=== PATIENT | male | born 1990 | race Caucasian/White ===

== ENCOUNTER → 2017-11-15 | Emergency (ER) | payer BC, MEDICAID ==
[~2017-11-15] VITALS: Ht 177.8 cm; Wt 76.2 kg
[~2017-11-15] MED LIST: KETOROLAC TROMETHAMINE 60 MG/2 ML VIAL IM ONE; LIDOCAINE 1% 10 MG/ML, 20 ML MDV INJ ONE; cefTRIAXone 1 GM VIAL IM ONE
[2017-11-15 16:28] VITALS: BP_SYST 156
== END | disposition still patient (30) ==
LOC: SED 16:16
DX: L02.811 Cutaneous abscess of head [any part, except face] (principal); Z90.89 Acquired absence of other organs
CPT/HCPCS: 10021; 96372; 99284; J0696; J1885; J2001

== ENCOUNTER 2022-05-18 15:11 | Emergency (ER) | payer MEDICAID, OTHER ==
[~2022-05-18] VITALS: Ht 177.8 cm; Wt 74.8 kg
[2022-05-18 15:33] VITALS: BP_SYST 123
[2022-05-18] MEDS ORDERED: MORPHINE 4 MG INJ. 4 MG/ML VIAL IVP ONE (16:30)
[2022-05-18] MEDS ORDERED: NACL 0.9% 1,000 ML IV ONE (16:30)
[2022-05-18] MEDS ORDERED: KETOROLAC TROMETHAMINE 15 MG VIAL IVP ONE (16:45)
[2022-05-18 16:54] LABS: BASOPHILS % (AUTO) 0.1 % (0.0-2.0); EOSINOPHILS # (AUTO) 0.1 K/uL (0.0-0.4); EOSINOPHILS % (AUTO) 0.9 % (0.0-4.0); HEMATOCRIT 31.4 % (36-54); HEMOGLOBIN 10.5 g/dL (14.0-18.0); LYMPHOCYTES % (AUTO) 7.8 % (20.5-51.5); MEAN CORPUSCULAR HEMOGLOBIN 25 pg (27-31); MEAN CORPUSCULAR HGB CONC 33 % (32-36); MEAN CORPUSCULAR VOLUME 75 fL (79.0-98.0); MONOCYTES # (AUTO) 1.9 K/uL (0.0-1.0); NEUTROPHILS # (AUTO) 9.6 K/uL (1.8-7.7); NEUTROPHILS % (AUTO) 76.2 % (40.0-70.0); PLATELET COUNT (AUTO) 355 K/uL (130-430); RED BLOOD CELL COUNT(AUTO) 4.18 MIL/uL (4.2-6.2); RED CELL DISTRIBUTION WIDTH 16.6 % (9.0-15.0); WHITE BLOOD COUNT (AUTO) 12.6 K/uL (4.8-10.8)
[2022-05-18 17:07] LABS: CALCIUM 9.3 mg/dL (8.4-11.0); CREATININE 0.82 mg/dL (0.55-1.30)
[2022-05-18 17:12] LABS: ALBUMIN 2.5 g/dL (3.4-4.8); TOTAL BILIRUBIN 0.3 mg/dL (0.0-1.0)
[2022-05-18] MEDS ORDERED: ASPIRIN 81 MG TAB.CHEW PO ONE (17:30)
[2022-05-18 17:34] LABS: ERYTHROCYTE SEDIMENTATION RATE 54 MM/HR (0-15)
[2022-05-18 17:39] LABS: C-REACTIVE PROTEIN QUANT 21.8 mg/dL (0-0.5)
[2022-05-18] MEDS ORDERED: SULFAMETHOXAZOLE/TRIMETHOPR DS 1 TABLET PO ONE (18:30)
[2022-05-18] MEDS ORDERED: SULF1TAB48 PO (18:33)
[2022-05-18 18:45] VITALS: BP_SYST 104
== END 2022-05-18 18:46 | disposition left against medical advice (07) ==
LOC: SED 15:11
DX: L03.116 Cellulitis of left lower limb (principal); R77.8 Other specified abnormalities of plasma proteins; R07.9 Chest pain, unspecified; R68.83 Chills (without fever); Z79.899 Other long term (current) drug therapy; Z20.822 Contact with and (suspected) exposure to COVID-19
CPT/HCPCS: 99285; 96374; 93971; 96361; 87426; 80053; 85025; 85651; 86140; 87040; 84484; 36415; 93005; J1885; J7030